=== PATIENT | male | born 1980 | race Caucasian/White ===

== ENCOUNTER → 2020-04-21 | Outpatient (CLI) | payer OTHER ==
[~2020-04-21] MED LIST: AMOX500 PO; BISA5EC PO; BUPR1 PO; CEFP200 PO; CITALOPRAM HBR20 M3 PO; CLON.1 PO; CLON.1TP TP; CYCL10 PO; DEPO-TESTO200 MG/14 IM; DICY20 PO; DIPATR PO; DIPH50 PO; ERYSTE250 PO; GOLYTELY PO; HYDACE5 PO; HYDROMORPHONE; IBUP600 PO; KETO10 PO; METO10 PO; MINO100 PO; NAPR500 PO; ONDA4ODT MM; ONDA8ODT MM; OXYCODONE; PENVK500 PO; POLY17UD PO; PROM25 PO; PSYL5.85P PO; RXHYDACE PO; RXPROM25 PO; SULTRIDS PO; TAMS.4ER PO; TRAM50 PO; [UNRECOGNIZED DRUG - REMARK]; [UNRECOGNIZED DRUG - REMARK]
== END ==
LOC: LAB 16:50
DX: L08.9 Local infection of the skin and subcutaneous tissue, unspecified (principal); L70.0 Acne vulgaris; L81.8 Other specified disorders of pigmentation
CPT/HCPCS: 87070; 87205

== ENCOUNTER 2020-12-02 00:59 | Emergency (ER) | payer OTHER | END 2020-12-02 05:44 | disposition home or self-care (01) | LOC: ER 00:59 | DX: N13.2 Hydronephrosis with renal and ureteral calculous obstruction (principal); Z88.8 Allergy status to other drugs, medicaments and biological substances; Z87.891 Personal history of nicotine dependence ==

== ENCOUNTER → 2020-12-18 | Outpatient (CLI) | payer OTHER ==
[2020-12-30 10:11] LABS: CA OXALATE DIHYDRATE 50 % (.); CALCIUM OXALATE MONOHYDRATE 40 % (.); COLOR Brown (.); HYDROXYAPATITE 10 % (.); SIZE 7x4 mm (.); WEIGHT 45 mg (.)
== END | disposition home or self-care (01) ==
LOC: LAB SHORT 09:00
PROVIDERS: Naturopath
DX: N20.0 Calculus of kidney (principal)
CPT/HCPCS: 82365